=== PATIENT | female | born 1960 | race Two or more races ===

== ENCOUNTER 2016-11-12 05:43 | Emergency (ER) | payer BC ==
[~2016-11-12] VITALS: Ht 157.5 cm; Wt 58.1 kg
[2016-11-12] MEDS ORDERED: METOCLOPRAMIDE HCL 10 MG/2 ML VIAL IV ONE (06:15)
[2016-11-12] MEDS ORDERED: KETOROLAC TROMETHAMINE 15 MG INJ IVP ONE (06:15)
[2016-11-12] MEDS ORDERED: IV NORMAL SALINE 1000 ML BAG IV ONE (06:15)
[2016-11-12] MEDS ORDERED: METOCLOPRAMIDE HCL 10 MG/2 ML VIAL ONE (06:32)
[2016-11-12] MEDS ORDERED: KETOROLAC TROMETHAMINE 15 MG INJ ONE (06:32)
[2016-11-12 06:33] LABS: BASOPHILS % (AUTO) 0.3 % (0.0-2.0); EOSINOPHILS # (AUTO) 0.1 K/uL (0.0-0.7); HEMATOCRIT 47.7 % (37-47); HEMOGLOBIN 15.8 G/DL (12.0-16.0); LYMPHOCYTES # (AUTO) 0.9 K/UL (0.8-4.8); LYMPHOCYTES % (AUTO) 14.1 % (20.5-51.5); MEAN CORPUSCULAR HEMOGLOBIN 29.6 UUG (27.0-31.0); MEAN CORPUSCULAR HGB CONC 33 g/dL (32.0-37.0); MEAN CORPUSCULAR VOLUME 89.7 FL (81.0-99.0); MONOCYTES # (AUTO) 0.3 K/UL (0.1-1.30); MONOCYTES % (AUTO) 4.8 % (0.0-11.0); NEUTROPHILS # (AUTO) 4.8 K/UL (1.8-8.9); NEUTROPHILS % (AUTO) 79.8 % (38.5-71.5); PLATELET COUNT (AUTO) 214 K/UL (150-450); RED BLOOD CELL COUNT(AUTO) 5.32 MIL/UL (4.2-5.4); WHITE BLOOD COUNT (AUTO) 6.1 K/UL (4.0-11.2)
[2016-11-12 06:44] LABS: CREATININE 0.8 mg/dL (0.6-1.3); POTASSIUM 4.1 mmol/L (3.5-5.1)
--- NOTE | 2016-11-12 06:57 | NUR ---
Patient in bed, awake, alert, responsive to verbal and tactile stimuli. Patient care endorsed to AM nurse Gabriel MERCER.
[2016-11-12 06:58] LABS: BILIRUBIN,DIRECT 0.2 mg/dL (0.0-0.2); BILIRUBIN,TOTAL 0.7 mg/dL (0.2-1.0); TOTAL PROTEIN, SERUM 7.6 g/dL (6.4-8.2)
[2016-11-12 07:17] LABS: BAND % (MANUAL) 36 % (0-10); LYMPHOCYTES % (MANUAL) 18 % (20-40); MONOCYTES % (MANUAL) 5 % (2-10); NEUTROPHILS % (MANUAL) 41 % (42-75)
--- NOTE | 2016-11-12 08:34 | NUR ---
pt was d/c to home. d/c instructions given to the pt.
[2016-11-12 08:37] VITALS: BP 129/68
== END 2016-11-12 08:38 | disposition home or self-care (01) ==
LOC: ER 05:46
DX: K52.9 Noninfective gastroenteritis and colitis, unspecified (principal); I48.91 Unspecified atrial fibrillation
CPT/HCPCS: 36415; 70030-TC; 71010; 83605; 83690; 85025; 85730; 87040; 93005; A4663; J1885; J2765; J7030